=== PATIENT | female | born 1960 | race African-American/Black ===

== ENCOUNTER 2017-05-01 22:19 | Inpatient (IN) | payer MEDICAID ==
[~2017-05-01] VITALS: Ht 177.8 cm; Wt 53.5 kg
[2017-05-01 22:56] LABS: Basophils # (auto) 0 uL; Basophils % (auto) 0.2 % (0.0-2.0); Eosinophils # (auto) 0 uL; Eosinophils % (auto) 0.5 % (0.0-7.0); Hematocrit 36.2 % (36.0-46.0); Hemoglobin 11.8 g/dL (12.2-16.2); Lymphocytes # (auto) 1.6 uL; Lymphocytes % (auto) 23.9 % (10.0-50.0); Mean Corpuscular Hemoglobin 28.1 pg (28.0-32.0); Mean Corpuscular Hgb Conc. 32.4 g/dL (32.0-36.0); Mean Corpuscular Volume 86.6 fL (80.0-100.0); Monocytes # (auto) 0.4 uL; Monocytes % (auto) 6.1 % (0.0-12.0); Neutrophils # (auto) 4.5 uL; Neutrophils % (auto) 69.3 % (37.0-80.0); Nucleated Red Blood Cells % 0.1 %; Platelet Count (auto) 294 10^3/uL (140-450); Red Blood Cells 4.18 10^6/uL (4.0-5.20); Red Cell Distribution Width 15.3 % (11.8-14.3); White Blood Cell 6.5 10^3/uL (4.4-10.8)
[2017-05-01 23:08] LABS: INR 0.98 (0.9-1.15); Partial Thromboplastin Time 24.7 sec (22.64-33.71); Prothrombin Time 10.7 sec (9.37-12.3)
[2017-05-01 23:21] LABS: Alanine Aminotransferase 29 U/L (13-56); Albumin 3.8 g/dL (3.4-5.0); Alkaline Phosphatase 110 U/L (45-117); Anion Gap 9 (5-15); Aspartate Aminotransferase 37 U/L (15-37); BUN/Creatinine Ratio 16.1; Bilirubin, Total 0.7 mg/dL (0.2-1.0); Blood Urea Nitrogen 15 mg/dL (7-18); Calcium 8.7 mg/dL (8.5-10.1); Carbon Dioxide 28 mmol/L (21-32); Chloride 106 mmol/L (98-107); GFR African American 80 mL/min; GFR Non-African American 67 mL/min; Glucose 104 mg/dL (74-106); Sodium 143 mmol/L (136-145)
[2017-05-02 01:46] LABS: Urine Bacteria MANY /hpf (None Seen); Urine Blood Negative /uL (Negative); Urine Hyaline Cast MOD /lpf (0 - 2); Urine Mucus FEW (None Seen); Urine Specific Gravity 1.018 (1.001-1.035); Urine WBC 66 /hpf (0 - 5)
[2017-05-02] MEDS ORDERED: LORazepam 2MG/ML-1ML VIAL ONE (07:33)
[2017-05-02] MEDS ORDERED: SODIUM CHLORIDE 0.9% 1,000 ML IV ONE (07:38)
[2017-05-02] MEDS ORDERED: LORazepam 2MG/ML-1ML VIAL IV ONE (07:45)
[2017-05-02] MEDS ORDERED: OLANZapine 5 MG TAB PO ONE (08:00)
[2017-05-02] MEDS ORDERED: cefTRIAXone 1GM/50ML D5W 50 ML IV ONE (10:45)
[2017-05-02] MEDS ORDERED: POTASSIUM CHL 10% (20 MEQ/15ML) 15ml ORAL SOLN PO ONE (10:45)
[2017-05-02] MEDS ORDERED: LORazepam 2MG/ML-1ML VIAL IM ONE (11:00)
[2017-05-02] MEDS ORDERED: NITROGLYCERIN 0.4 MG SL TAB SL PRN (12:00)
[2017-05-02] MEDS ORDERED: TEMAZEPAM 15 MG CAP PO PRN (12:00)
[2017-05-02] MEDS ORDERED: LACTULOSE 20Gm/30ML SOLN PO PRN (12:00)
[2017-05-02] MEDS ORDERED: PROMETHAZINE HCL 25 MG/ML 1ML IV PRN (12:00)
[2017-05-02] MEDS ORDERED: MORPHINE SULFATE 10 MG/ML INJ 1ML SDV IV PRN ×2 (12:00)
[2017-05-02] MEDS ORDERED: HYDROcodone-ACET 5/325MG TAB PO PRN (12:00)
[2017-05-02] MEDS ORDERED: ACETAMINOPHEN 500 MG TAB PO PRN (12:00)
[2017-05-02] MEDS: SODIUM CHLORIDE 0.9% 1,000 ML IV SCH ×2 (12:15→17:44)
[2017-05-02 17:00] VITALS: BP 134/93
[2017-05-02] MEDS: LORazepam 0.5 MG TAB PO PRN ×2 (17:42→23:52)
[2017-05-02] MEDS ORDERED: GALA4TAB PO (20:46)
[2017-05-02] MEDS ORDERED: TRAM50TA2 PO (20:46)
[2017-05-02] MEDS ORDERED: DEXT20CA PO (20:46)
[2017-05-02] MEDS ORDERED: MELO15TA4 PO (20:46)
[2017-05-02] MEDS ORDERED: HALO2CON8 PO (20:46)
[2017-05-02] MEDS ORDERED: OLAN10TA29 PO (20:46)
[2017-05-02] MEDS ORDERED: MEMA1TAB2 PO (20:46)
[2017-05-02 22:00] VITALS: BP 148/100
[2017-05-03 05:30] VITALS: BP 128/88
[2017-05-03 08:54] VITALS: BP 131/92
[2017-05-03] MEDS ORDERED: cefTRIAXone 1GM/50ML D5W 50 ML IV SCH (09:00)
[2017-05-03] MEDS ORDERED: ENOXAPARIN SOD 40 MG/0.4 ML SYRINGE SC SCH (10:00)
[2017-05-03 12:55] VITALS: BP 125/89
[2017-05-03] MEDS: SODIUM CHLORIDE 0.9% 1,000 ML IV SCH (13:26)
[2017-05-03 15:06] LABS: BUN/Creatinine Ratio 12.7; Calcium 8.2 mg/dL (8.5-10.1); Potassium 3.1 mmol/L (3.5-5.1)
[2017-05-03] MEDS ORDERED: LEVO500T21 PO (15:37)
[2017-05-03] MEDS ORDERED: POTASSIUM CHL 10% (20 MEQ/15ML) 15ml ORAL SOLN PO ONE (15:45)
[2017-05-03] MEDS ORDERED: POTASSIUM CHL 20MEQ/50ML 50 ML IV ONE (15:45)
[2017-05-03 16:57] VITALS: BP 121/95
[2017-05-03 18:35] VITALS: BP 121/95
[2017-05-03] MEDS ORDERED: LORazepam 2MG/ML-1ML VIAL IV ONE (19:30)
[2017-05-03 21:00] VITALS: BP 125/85
== END 2017-05-03 21:25 | disposition home health service (06) | DRG 463 ==
LOC: ER 22:19 → TELE 22:20 → TELE-CENTR 05-02 15:27
PROVIDERS: ADMIT Internal Medicine; ATTEND Internal Medicine
DX: N39.0 Urinary tract infection, site not specified (principal); G92 Toxic encephalopathy; G30.1 Alzheimer's disease with late onset; F02.81 Dementia in other diseases classified elsewhere, unspecified severity, with behavioral disturbance; M19.91 Primary osteoarthritis, unspecified site; E87.6 Hypokalemia; Z88.0 Allergy status to penicillin
CPT/HCPCS: 36415; 70450; 71010; 80048; 80053; 81001; 83735; 84443; 84484; 85025; 85610; 85730; 87086; 94761; 96361; 96372; 96374; 96375; J0696

== ENCOUNTER 2017-05-12 11:02 | Inpatient (IN) | payer MEDICAID ==
[~2017-05-12] VITALS: Ht 167.6 cm; Wt 60.0 kg
[~2017-05-12 11:02] MED LIST: DEXT20CA PO; GALA4TAB PO; HALO2CON8 PO; LEVO500T21 PO; MELO15TA4 PO; MEMA1TAB2 PO; OLAN10TA29 PO; TRAM50TA2 PO
[2017-05-12 11:32] LABS: Basophils # (auto) 0 uL; Basophils % (auto) 0.1 % (0.0-2.0); Eosinophils # (auto) 0 uL; Eosinophils % (auto) 0.4 % (0.0-7.0); Hematocrit 33.2 % (36.0-46.0); Hemoglobin 10.8 g/dL (12.2-16.2); Lymphocytes # (auto) 0.9 uL; Lymphocytes % (auto) 14.1 % (10.0-50.0); Mean Corpuscular Hemoglobin 28.1 pg (28.0-32.0); Mean Corpuscular Hgb Conc. 32.6 g/dL (32.0-36.0); Mean Corpuscular Volume 86.1 fL (80.0-100.0); Mean Platelet Volume 6.9 fL (6.9-10.8); Monocytes # (auto) 0.3 uL; Monocytes % (auto) 5.1 % (0.0-12.0); Neutrophils % (auto) 80.3 % (37.0-80.0); Platelet Count (auto) 248 10^3/uL (140-450); Red Cell Distribution Width 15.7 % (11.8-14.3); White Blood Cell 6.2 10^3/uL (4.4-10.8)
[2017-05-12 11:51] LABS: Albumin 3.4 g/dL (3.4-5.0); Alkaline Phosphatase 100 U/L (45-117); Anion Gap 7 (5-15); Aspartate Aminotransferase 45 U/L (15-37); BUN/Creatinine Ratio 15.5; Blood Urea Nitrogen 15 mg/dL (7-18); Calcium 8.2 mg/dL (8.5-10.1); Carbon Dioxide 28 mmol/L (21-32); Chloride 108 mmol/L (98-107); GFR African American 77 mL/min; GFR Non-African American 63 mL/min; Glucose 118 mg/dL (74-106); Sodium 143 mmol/L (136-145); Total Protein 7.1 g/dL (6.4-8.2)
[2017-05-12 11:55] LABS: Potassium 2.9 mmol/L (3.5-5.1)
[2017-05-12] MEDS ORDERED: SODIUM CHLORIDE 0.9% 1,000 ML IVB ONE (12:11)
[2017-05-12 13:07] LABS: INR 1.01 (0.9-1.15); Partial Thromboplastin Time 24.9 sec (22.64-33.71)
[2017-05-12 13:19] LABS: Acetaminophen < 2.0 ug/mL (10-30); Salicylate < 1.7 mg/dL (2.8-20.0)
[2017-05-12] MEDS ORDERED: DEXTROSE (50%) 50ML SYRG IV ONE (13:45)
[2017-05-12] MEDS ORDERED: POTASSIUM CHL 20MEQ/50ML 50 ML IV SCH (13:45)
[2017-05-12] MEDS ORDERED: POTASSIUM CHL 20 Meq TABLET PO ONE (14:00)
[2017-05-12] MEDS ORDERED: LORazepam 2MG/ML-1ML VIAL ONE (15:17)
[2017-05-12] MEDS ORDERED: LORazepam 2MG/ML-1ML VIAL IV ONE (15:30)
[2017-05-12] MEDS ORDERED: PROMETHAZINE HCL 25 MG/ML 1ML IV PRN (15:45)
[2017-05-12] MEDS ORDERED: DEXTROSE (50%) 50ML SYRG IV PRN (15:45)
[2017-05-12] MEDS ORDERED: TEMAZEPAM 15 MG CAP PO PRN (15:45)
[2017-05-12] MEDS ORDERED: LACTULOSE 20Gm/30ML SOLN PO PRN (15:45)
[2017-05-12] MEDS ORDERED: MORPHINE SULF INJ 2 MG/ML SYRINGE 1ML IV PRN (15:45)
[2017-05-12] MEDS ORDERED: HYDROcodone-ACET 5/325MG TAB PO PRN (15:45)
[2017-05-12] MEDS ORDERED: HYDROmorphone HCL 2 MG/ML VL IV PRN (15:45)
[2017-05-12] MEDS ORDERED: ACETAMINOPHEN 500 MG TAB PO PRN (15:45)
[2017-05-12] MEDS ORDERED: NITROGLYCERIN 0.4 MG SL TAB SL PRN (15:45)
[2017-05-12] MEDS: ACCU-CHEK COMFORT CURVE STRIP VI SCH ×2 (16:00→20:00)
[2017-05-12] MEDS ORDERED: ASPirin 81 mg TAB PO ONE (16:00)
[2017-05-12] MEDS ORDERED: HALOPERIDOL LACTATE 5 MG/ML INJ VIAL ONE (16:06)
[2017-05-12] MEDS ORDERED: HALOPERIDOL LACTATE 5 MG/ML INJ VIAL IM ONE (16:15)
[2017-05-12] MEDS: SOD CHL 0.9%/ KCL 20MEQ 1,000 ML IV SCH (16:26)
[2017-05-12] MEDS: ENOXAPARIN SOD 40 MG/0.4 ML SYRINGE SC SCH (16:26)
[2017-05-12] MEDS: HALOPERIDOL 5 MG TAB PO SCH (21:59)
[2017-05-12 22:00] VITALS: BP 126/78
[2017-05-12] MEDS ORDERED: PATIENTS OWN MEDICATION (Olanzapine 10 MG) PO SCH (22:00)
[2017-05-12] MEDS: GALANTAMINE 4 MG PO SCH (22:00)
[2017-05-12] MEDS: OLANZapine 5 MG TAB PO SCH (22:00)
[2017-05-12] MEDS: MEMANTINE HCL 5 MG TAB PO SCH (22:00)
[2017-05-12] MEDS: DEXTROMETHORPHAN HBR QUINIDINE PO SCH (22:00)
[2017-05-13] VITALS (8 sets, daily range): BP systolic 106–140; BP diastolic 75–106
[2017-05-13] MEDS: LORazepam 0.5 MG TAB PO PRN ×3 (02:31→22:46)
[2017-05-13] MEDS: ACCU-CHEK COMFORT CURVE STRIP VI SCH ×6 (03:51→20:00)
[2017-05-13] MEDS ORDERED: cloNIDine HCL 0.1 MG TAB PO ONE (06:30)
[2017-05-13 07:14] LABS: Albumin 3.4 g/dL (3.4-5.0); Calcium 8.6 mg/dL (8.5-10.1)
[2017-05-13 07:17] LABS: BUN/Creatinine Ratio 11.8
[2017-05-13 07:19] LABS: Total Protein 7.3 g/dL (6.4-8.2)
[2017-05-13 07:29] LABS: Potassium 2.8 mmol/L (3.5-5.1)
[2017-05-13] MEDS ORDERED: HALOPERIDOL LACTATE 5 MG/ML INJ VIAL IV PRN (09:30)
[2017-05-13] MEDS: ASPirin 81 mg TAB PO SCH (10:00)
[2017-05-13] MEDS: OLANZapine 5 MG TAB PO SCH ×2 (10:00→22:45)
[2017-05-13] MEDS: GALANTAMINE 4 MG PO SCH ×2 (10:00→22:00)
[2017-05-13] MEDS: HALOPERIDOL 5 MG TAB PO SCH ×2 (10:00→22:44)
[2017-05-13] MEDS: MEMANTINE HCL 5 MG TAB PO SCH ×2 (10:00→22:45)
[2017-05-13] MEDS: DEXTROMETHORPHAN HBR QUINIDINE PO SCH ×2 (10:00→22:00)
[2017-05-13] MEDS: POTASSIUM CHL 20MEQ/50ML 50 ML IV SCH ×2 (11:00→12:27)
[2017-05-13] MEDS: SOD CHL 0.9%/ KCL 20MEQ 1,000 ML IV SCH ×2 (14:28→17:24)
[2017-05-13 16:04] LABS: BUN/Creatinine Ratio 10.5; Calcium 8.7 mg/dL (8.5-10.1); Potassium 3.9 mmol/L (3.5-5.1)
[2017-05-13] MEDS: ENOXAPARIN SOD 40 MG/0.4 ML SYRINGE SC SCH (16:29)
[2017-05-14] VITALS (8 sets, daily range): BP systolic 128–147; BP diastolic 91–111
[2017-05-14] MEDS: SOD CHL 0.9%/ KCL 20MEQ 1,000 ML IV SCH (03:35)
[2017-05-14] MEDS: ACCU-CHEK COMFORT CURVE STRIP VI SCH ×6 (04:00→21:18)
[2017-05-14 06:22] LABS: Basophils # (auto) 0 uL; Basophils % (auto) 0.1 % (0.0-2.0); Eosinophils # (auto) 0 uL; Eosinophils % (auto) 0.9 % (0.0-7.0); Hematocrit 35.4 % (36.0-46.0); Hemoglobin 11.4 g/dL (12.2-16.2); Lymphocytes # (auto) 1.7 uL; Lymphocytes % (auto) 37.2 % (10.0-50.0); Mean Corpuscular Hemoglobin 28.2 pg (28.0-32.0); Mean Corpuscular Hgb Conc. 32.2 g/dL (32.0-36.0); Mean Corpuscular Volume 87.5 fL (80.0-100.0); Mean Platelet Volume 7.1 fL (6.9-10.8); Monocytes # (auto) 0.3 uL; Monocytes % (auto) 6.5 % (0.0-12.0); Neutrophils # (auto) 2.5 uL; Neutrophils % (auto) 55.3 % (37.0-80.0); Nucleated Red Blood Cells % 0.3 %; Platelet Count (auto) 275 10^3/uL (140-450); Red Cell Distribution Width 16.4 % (11.8-14.3); White Blood Cell 4.5 10^3/uL (4.4-10.8)
[2017-05-14 06:52] LABS: BUN/Creatinine Ratio 12.1; Calcium 9.1 mg/dL (8.5-10.1); Magnesium 2.4 mg/dL (1.6-2.6); Phosphorus 3.1 mg/dL (2.5-4.90); Potassium 3.3 mmol/L (3.5-5.1)
[2017-05-14] MEDS: DEXTROMETHORPHAN HBR QUINIDINE PO SCH (10:00)
[2017-05-14] MEDS: GALANTAMINE 4 MG PO SCH ×2 (10:00→21:17)
[2017-05-14] MEDS: HALOPERIDOL 5 MG TAB PO SCH (10:52)
[2017-05-14] MEDS: MEMANTINE HCL 5 MG TAB PO SCH ×2 (10:53→21:17)
[2017-05-14] MEDS: OLANZapine 5 MG TAB PO SCH ×2 (10:55→21:17)
[2017-05-14] MEDS: ASPirin 81 mg TAB PO SCH (10:55)
[2017-05-14] MEDS ORDERED: POTASSIUM CHL 20 Meq TABLET PO ONE ×2 (14:30→20:00)
[2017-05-14] MEDS ORDERED: CITALOPRAM HYDROBR 20 MG TAB PO ONE (14:45)
[2017-05-14 15:48] LABS: Urine Bilirubin Negative (Negative); Urine Blood Negative /uL (Negative); Urine Color Yellow (Yellow); Urine Glucose Normal (Normal); Urine Ketone Negative (Negative); Urine Nitrite Negative (Negative); Urine RBC <1 /hpf (0 - 4); Urine Squamous Epithelial Cell FEW /hpf (<5); Urine Urobilinogen Normal (Negative)
[2017-05-14] MEDS: ENOXAPARIN SOD 40 MG/0.4 ML SYRINGE SC SCH (17:04)
[2017-05-15] MEDS: ACCU-CHEK COMFORT CURVE STRIP VI SCH ×3 (06:29→19:00)
[2017-05-15 09:00] VITALS: BP 104/84
[2017-05-15] MEDS: MEMANTINE HCL 5 MG TAB PO SCH ×2 (10:00→21:31)
[2017-05-15] MEDS: ASPirin 81 mg TAB PO SCH (10:00)
[2017-05-15] MEDS: CITALOPRAM HYDROBR 20 MG TAB PO SCH (10:01)
[2017-05-15] MEDS: OLANZapine 5 MG TAB PO SCH ×2 (10:42→21:31)
[2017-05-15] MEDS: GALANTAMINE 4 MG PO SCH ×2 (10:43→21:37)
[2017-05-15 13:00] VITALS: BP 108/78
[2017-05-15 14:58] VITALS: BP 108/78
[2017-05-15] MEDS: ENOXAPARIN SOD 40 MG/0.4 ML SYRINGE SC SCH (21:32)
[2017-05-16] MEDS: ACCU-CHEK COMFORT CURVE STRIP VI SCH ×3 (00:02→06:10)
[2017-05-16 05:00] VITALS: BP 104/69
[2017-05-16 09:00] VITALS: BP 123/72
[2017-05-16] MEDS: ASPirin 81 mg TAB PO SCH (10:29)
[2017-05-16] MEDS: OLANZapine 5 MG TAB PO SCH (10:29)
[2017-05-16] MEDS: CITALOPRAM HYDROBR 20 MG TAB PO SCH (10:30)
[2017-05-16] MEDS: MEMANTINE HCL 5 MG TAB PO SCH (10:30)
[2017-05-16] MEDS: GALANTAMINE 4 MG PO SCH (10:31)
== END 2017-05-16 13:30 | disposition home or self-care (01) | DRG 42 ==
LOC: ER 11:02 → EDBD 11:02 → TELE 11:03 → TELE-WESTW 19:27
PROVIDERS: ADMIT Internal Medicine; ATTEND Internal Medicine
DX: G30.9 Alzheimer's disease, unspecified (principal); G93.41 Metabolic encephalopathy; F05 Delirium due to known physiological condition; F20.9 Schizophrenia, unspecified; F02.80 Dementia in other diseases classified elsewhere, unspecified severity, without behavioral disturbance, psychotic disturbance, mood disturbance, and anxiety; E87.6 Hypokalemia; D64.9 Anemia, unspecified; E16.2 Hypoglycemia, unspecified; F31.9 Bipolar disorder, unspecified; I10 Essential (primary) hypertension; M19.90 Unspecified osteoarthritis, unspecified site; H11.30 Conjunctival hemorrhage, unspecified eye; Z87.440 Personal history of urinary (tract) infections; Z88.0 Allergy status to penicillin
CPT/HCPCS: 36415; 70450; 71010; 80048; 80053; 80307; 80329; 81001; 82550; 82607; 82746; 82962; 83036; 83605; 83735; 84100; 84443; 84484; 85025; 85610; 85652; 85730; 87040; 87081; 93005; 94761; 96361; 96372; 96374; 96375; 97110; 97116; 97530